=== PATIENT | male | born 1995 | race African-American/Black ===

== ENCOUNTER 2025-07-04 17:58 | Emergency (ER) | payer OTHER ==
[~2025-07-04] VITALS: Ht 175.3 cm; Wt 81.0 kg
[2025-07-04 18:02] VITALS: TEMP 98; O2SAT 98
[2025-07-04 19:40] VITALS: BP 126/73; PULSE 64; RESP 18; O2SAT 98
== END 2025-07-04 19:40 ==
LOC: ER 17:58
DX: F41.9 Anxiety disorder, unspecified (principal); F32.A Depression, unspecified; R68.2 Dry mouth, unspecified
CPT/HCPCS: 93005; 99283